=== PATIENT | male | born 1980 | race Caucasian/White ===

== ENCOUNTER 2021-12-05 12:53 | Outpatient (CLI) | payer MEDICARE, MEDICAID | END 2021-12-05 23:59 | disposition home or self-care (01) | LOC: CARD DIAG 12:53 | PROVIDERS: ATTEND Internal Medicine Cardiovascular Disease | DX: I08.8 Other rheumatic multiple valve diseases (principal); I10 Essential (primary) hypertension | CPT/HCPCS: 93306 ==

== ENCOUNTER 2023-07-08 14:56 | Emergency (ER) | payer MEDICARE, MEDICAID ==
[~2023-07-08] VITALS: Ht 180.3 cm; Wt 116.8 kg
[2023-07-08 15:04] VITALS: BP 153/102; PULSE 120; RESP 16; TEMP 98.7; O2SAT 93
[2023-07-08 15:47] LABS: BASOPHILS # (AUTO) 0.1 X10'3 (0-0.2); BASOPHILS % (AUTO) 0.6 % (0-1); EOSINOPHILS # (AUTO) 0.2 X10'3 (0-0.9); EOSINOPHILS % (AUTO) 1.5 % (0-6); HEMATOCRIT 44.3 % (42.0-52.0); HEMOGLOBIN 15.3 g/dl (14.0-17.9); LYMPHOCYTES # (AUTO) 1.8 X10'3 (1.1-4.8); LYMPHOCYTES % (AUTO) 13.9 % (21-51); MEAN CORPUSCULAR HEMOGLOBIN 31.6 PG (27.0-31.0); MEAN CORPUSCULAR HGB CONC 34.5 g/dL (33.0-36.5); MEAN CORPUSCULAR VOLUME 91.8 FL (78-98); MEAN PLATELET VOLUME 7.6 FL (7.4-10.4); MONOCYTES # (AUTO) 1.5 X10'3 (0-0.9); MONOCYTES % (AUTO) 11.6 % (2-12); NEUTROPHILS # (AUTO) 9.2 X10'3 (1.8-7.7); NEUTROPHILS % (AUTO) 72.4 % (42-75); PLATELET COUNT 232 X10'3 (140-440); RED BLOOD COUNT 4.83 X10'6 (4.70-6.10); WHITE BLOOD COUNT 12.7 X10'3 (4.5-11.0)
[2023-07-08 15:56] LABS: ALANINE AMINOTRANSFERASE 66 U/L (12-78); ALBUMIN 4.6 G/DL (3.4-5.0); ALBUMIN/GLOBULIN RATIO 1.2 (1.1-1.5); ALKALINE PHOSPHATASE 84 IU/L (46-116); ANION GAP 12 (8-16); ASPARTATE AMINO TRANSFERASE 55 U/L (10-37); BILIRUBIN,TOTAL 0.8 MG/DL (0.1-1.0); BLOOD UREA NITROGEN 10 MG/DL (7-18); BUN/CREATININE RATIO 9.6 (10.0-20.0); CALCIUM 9.3 MG/DL (8.5-10.1); CHLORIDE 98 MMOL/L (99-107); CREATININE 1.04 MG/DL (0.60-1.10); GLUCOSE 147 MG/DL (70-104); SODIUM 137 MMOL/L (135-145); TOTAL CARBON DIOXIDE 27.2 MMOL/L (24-32); TOTAL PROTEIN 8.5 G/DL (6.4-8.2); eCRCL 97 ML/MIN; eGFR 78 ML/MIN
[2023-07-08 16:03] LABS: PRO BRAIN NATRIURETIC PEPTIDE 55 PG/ML (0-125)
[2023-07-08] MEDS ORDERED: ondansetron 4mg rapidly disintigrating tab PO ONE (18:25)
[2023-07-08] MEDS ORDERED: famotidine 20mg tablet PO ONE (18:25)
[2023-07-08] MEDS ORDERED: mag hydrox/Alum hydrox/simeth 30ml oral suspension PO ONE (18:25)
[2023-07-08] MEDS ORDERED: LORazepam 1 MG tablet PO ONE (18:25)
[2023-07-08 19:00] LABS: FREE T4 (FREE THYROXINE) 1.1 NG/DL (0.73-1.40); THYROID STIMULATING HORMONE 1.6 ulU/ml (0.34-4.50)
[2023-07-08] MEDS ORDERED: FAMO-129 PO ×2 (19:20)
[2023-07-08] MEDS ORDERED: ONDA4TAB12 PO ×3 (19:20→19:47)
[2023-07-08] MEDS ORDERED: MAG355OR18 PO ×3 (19:20→19:47)
[2023-07-08] MEDS ORDERED: HYDR-3686 PO (19:47)
[2023-07-08] MEDS ORDERED: FAMO-128 PO (19:47)
== END 2023-07-08 19:45 | disposition home or self-care (01) ==
LOC: ER 14:56
DX: K21.9 Gastro-esophageal reflux disease without esophagitis (principal); F41.9 Anxiety disorder, unspecified; I10 Essential (primary) hypertension; Z72.89 Other problems related to lifestyle; Z79.899 Other long term (current) drug therapy
CPT/HCPCS: 36415; 71045; 80053; 83880; 84439; 84443; 84484; 85025; 93005; 99285